=== PATIENT | male | born 1975 | race Caucasian/White ===

== ENCOUNTER 2022-02-02 14:08 | Inpatient (IN) ==
[2022-02-02] MEDS ORDERED: ALBUTEROL/IPRATROPIUM 3 ML NEB RESP TX STA (14:29)
[2022-02-02] MEDS ORDERED: methylPREDNISolone SOD SUC 125 MG/2 ML VIAL IV STA (14:29)
[2022-02-02 14:44] LABS: Basophils % 0.4 % (0.0-0.8); Eosinophils % 0.1 % (0.00-10.9); Hematocrit 40.6 VOL% (42.0-52.0); Hemoglobin 13.5 GM/DL (14.0-18.0); Immature Granulocytes % 0.4 %; Immature Granulocytes Absolute 0.04 #; Lymphocytes % 11.2 % (21.2-54.2); Mean Corpuscular HGB Conc 33.3 GM/DL (32-36); Mean Corpuscular Volume 88.5 FL (87-102); Mean Platelet Volume 9.2 FL (9.6-12.0); Monocytes # 0.3 10*3/uL (0.11-0.8); Monocytes % 2.7 % (1.7-12.7); Neutrophils % 85.2 % (38.7-73.9); Platelet Count 431 T/CUMM (130-400); Red Blood Count 4.59 MC/CUMM (3.8-5.5); Red Cell Distribution Width 16.4 % (9.3-17.3); White Blood Count 9.2 T/CUMM (4-12)
[2022-02-02 14:54] LABS: Arterial Base Excess iSTAT -10 MMOL/L (-2.5-2.5); Arterial Bicarbonate iSTAT 10.4 MMOL/L (20-26); Arterial O2 Saturation iSTAT 96 % (95-100); Arterial PCO2 iSTAT 14 MM HG (35-48); Arterial PO2 iSTAT 69 MM HG (80-95); Arterial Total CO2 iSTAT 11 MMO/L (23-27)
[2022-02-02] MEDS ORDERED: AZITHROMYCIN INJ 500 MG in SODIUM CHLORIDE 0.9% 250 ML IV STA (15:01)
[2022-02-02] MEDS ORDERED: VANCOMYCIN INJ 1,000 MG in SODIUM CHLORIDE 0.9% 250 ML IV STA ×2 (15:01→15:16)
[2022-02-02] MEDS ORDERED: PIPERACILLIN/TAZOBACTAM 3,375 MG in SODIUM CHLORIDE 0.9% 100 ML IV STA (15:01)
[2022-02-02 15:04] LABS: Albumin 3.5 G/DL (3.4-5.0); Bilirubin,Total 0.6 MG/DL (0.20-1.00); Calcium 8.4 MG/DL (8.5-10.1); Osmolality,Calculated 282.7 MOS/KG (273-304); Potassium 3.9 MMOL/L (3.5-5.1); Total Protein 7.2 G/DL (6.4-8.2)
[2022-02-02] MEDS ORDERED: SODIUM CHLORIDE 0.9% 1,000 ML IV STA (15:18)
[2022-02-02] MEDS ORDERED: ALBUTEROL 2.5 MG/3 ML NEB RESP TX PRN (15:50)
[2022-02-02] MEDS ORDERED: ONDANSETRON 4 MG/2 ML VIAL IV PRN (15:50)
[2022-02-02] MEDS ORDERED: SODIUM BICARBONATE 50 MEQ/50 ML VIAL IV STA (15:55)
[2022-02-02] MEDS ORDERED: OSELTAMIVIR 75 MG CAPSULE PO SCH (16:00)
[2022-02-02] MEDS ORDERED: LACTATED RINGERS 1,000 ML IV ONE (17:24)
[2022-02-02] MEDS: ALPRAZolam 0.5 MG TABLET PO PRN (17:36)
[2022-02-02 17:49] LABS: Arterial Base Excess iSTAT -12 MMOL/L (-2.5-2.5); Arterial Bicarbonate iSTAT 10.3 MMOL/L (20-26); Arterial O2 Saturation iSTAT 91 % (95-100); Arterial PCO2 iSTAT 16 MM HG (35-48); Arterial PO2 iSTAT 57 MM HG (80-95); Arterial Total CO2 iSTAT 11 MMO/L (23-27); Arterial pH iSTAT 7.421 (7.35-7.45)
[2022-02-02] MEDS: ALBUTEROL/IPRATROPIUM 3 ML NEB RESP TX SCH (19:12)
[2022-02-02] MEDS: OSELTAMIVIR 30 MG CAPSULE PO SCH (20:37)
[2022-02-02] MEDS: cefTRIAXone 1,000 MG in SODIUM CHLORIDE 0.9% 100 ML IV SCH (20:38)
[2022-02-02] MEDS ORDERED: SODIUM CHLORIDE 0.9% 1,000 ML IV ONE (22:53)
[2022-02-02] MEDS: ACETAMINOPHEN 325 MG TABLET PO PRN (23:41)
[2022-02-02] MEDS: SODIUM CHLORIDE 0.9% 1,000 ML IV SCH (23:51)
[2022-02-03] MEDS ORDERED: FUROSEMIDE 40 MG/4 ML VIAL IV ONE (01:48)
[2022-02-03] MEDS: ALBUTEROL/IPRATROPIUM 3 ML NEB RESP TX SCH ×4 (02:15→19:20)
[2022-02-03] MEDS ORDERED: NOREPINEPHRINE DRIP 8 MG/250 ML PREMIX IV PRN (02:40)
[2022-02-03] MEDS ORDERED: LORazepam 2 MG/1 ML VIAL IV ONE (02:40)
[2022-02-03] MEDS ORDERED: LORazepam 2 MG/1 ML VIAL ONE (02:45)
[2022-02-03] MEDS ORDERED: methylPREDNISolone SOD SUC 40 MG/1 ML VIAL IV SCH ×2 (03:00→10:00)
[2022-02-03 03:32] LABS: Arterial Base Excess iSTAT -9 MMOL/L (-2.5-2.5); Arterial Bicarbonate iSTAT 14.5 MMOL/L (20-26); Arterial O2 Saturation iSTAT 89 % (95-100); Arterial PCO2 iSTAT 25 MM HG (35-48); Arterial PO2 iSTAT 56 MM HG (80-95); Arterial Total CO2 iSTAT 15 MMO/L (23-27); Arterial pH iSTAT 7.379 (7.35-7.45)
[2022-02-03 03:55] LABS: Basophils % 0.3 % (0.0-0.8); Hemoglobin 12.3 GM/DL (14.0-18.0); Immature Granulocytes % 0.1 %; Immature Granulocytes Absolute 0.01 #; Lymphocytes # 0.7 10*3/uL (1.4-4.0); Mean Corpuscular HGB Conc 33.2 GM/DL (32-36); Mean Corpuscular Volume 89.6 FL (87-102); Mean Platelet Volume 9.6 FL (9.6-12.0); Monocytes # 0.2 10*3/uL (0.11-0.8); Monocytes % 2.7 % (1.7-12.7); Neutrophils % 87.9 % (38.7-73.9); Platelet Count 332 T/CUMM (130-400); Red Blood Count 4.13 MC/CUMM (3.8-5.5); Red Cell Distribution Width 16.4 % (9.3-17.3); White Blood Count 7.9 T/CUMM (4-12)
[2022-02-03 04:14] LABS: Band Neutrophils 6 % (0-10); Lymphocytes 8 % (20-55); Platelet Estimate Adequate; Total Cells Counted 100
[2022-02-03 04:15] LABS: Hypochromia Slight
[2022-02-03 04:23] LABS: Alanine Aminotransferase 16 U/L (16-61); Albumin 2.4 G/DL (3.4-5.0); Alkaline Phosphatase 94 U/L (45-117); Aspartate Amino Transferase 49 U/L (0-37); Bilirubin,Total < 0.39 MG/DL (0.20-1.00); Blood Urea Nitrogen 27 MG/DL (7-18); Calcium 7.5 MG/DL (8.5-10.1); Carbon Dioxide 16 MMOL/L (21-32); Chloride 118 MMOL/L (98-107); Glucose 120 MG/DL (74-106); Osmolality,Calculated 284.4 MOS/KG (273-304); Potassium 3.6 MMOL/L (3.5-5.1); Sodium 140 MMOL/L (136-145); Thyroid Stimulating Hormone 0.238 uIU/ml (0.358-3.74)
[2022-02-03 06:14] LABS: Arterial Base Excess iSTAT -8 MMOL/L (-2.5-2.5); Arterial Bicarbonate iSTAT 14.8 MMOL/L (20-26); Arterial O2 Saturation iSTAT 94 % (95-100); Arterial PCO2 iSTAT 23 MM HG (35-48); Arterial PO2 iSTAT 66 MM HG (80-95); Arterial Total CO2 iSTAT 15 MMO/L (23-27); Arterial pH iSTAT 7.417 (7.35-7.45)
[2022-02-03] MEDS: SODIUM CHLORIDE 0.9% 1,000 ML IV SCH (08:08)
[2022-02-03] MEDS: OSELTAMIVIR 30 MG CAPSULE PO SCH (09:00)
[2022-02-03] MEDS: PANTOPRAZOLE 40 MG TABLET PO SCH (09:00)
[2022-02-03] MEDS: AZITHROMYCIN 250 MG TABLET PO SCH (09:00)
[2022-02-03] MEDS ORDERED: SODIUM BICARBONATE 50 MEQ/50 ML VIAL IV ONE (09:32)
[2022-02-03] MEDS: NICOTINE 21 MG/24 HR PATCH TRANSDERM PRN (10:00)
[2022-02-03] MEDS: VANCOMYCIN INJ 1,000 MG in SODIUM CHLORIDE 0.9% 250 ML IV SCH ×2 (12:00→23:55)
[2022-02-03] MEDS: ACETAMINOPHEN 325 MG TABLET PO PRN (12:05)
[2022-02-03] MEDS: GABAPENTIN 300 MG CAPSULE PO SCH ×2 (14:02→20:18)
[2022-02-03 14:23] LABS: Mucus,Urine Occasional /LPF (Occasional); RBC,Urine 1 /HPF (0-4)
[2022-02-03 14:24] LABS: Bilirubin,Urine Negative (Negative); Blood, Urine Negative (Negative); Glucose,Urine (UA) Negative (Negative); Ketones,Urine Negative (Negative); Nitrite,Urine Negative (Negative); Protein,Urine Trace mg/dL (Negative); Urine Appearance Clear (Clear); Urine Color Yellow (Yellow); Urine Urobilinogen 0.2 eU/dL (<2.0); Urine pH 5.5 (4.5-8.0)
[2022-02-03] MEDS: MORPHINE 2 MG/1 ML SYRINGE IV PRN ×2 (16:10→20:20)
[2022-02-03 16:26] LABS: Calcium 8.1 MG/DL (8.5-10.1); Osmolality,Calculated 289.3 MOS/KG (273-304); Potassium 2.9 MMOL/L (3.5-5.1)
[2022-02-03] MEDS: POTASSIUM CHLORIDE 20 MEQ TABLET PO PRN ×3 (17:07→22:07)
[2022-02-03] MEDS ORDERED: ALUMINUM/MAGNES/SIMETH MAX STR 30 ML UDCUP PO PRN (18:07)
[2022-02-03] MEDS: OSELTAMIVIR 75 MG CAPSULE PO SCH (20:18)
[2022-02-03] MEDS: cefTRIAXone 1,000 MG in SODIUM CHLORIDE 0.9% 100 ML IV SCH (20:18)
[2022-02-04] MEDS: ALBUTEROL/IPRATROPIUM 3 ML NEB RESP TX SCH ×4 (00:22→18:18)
[2022-02-04] MEDS: MORPHINE 2 MG/1 ML SYRINGE IV PRN ×3 (01:10→23:40)
[2022-02-04] MEDS: POTASSIUM CHLORIDE 20 MEQ TABLET PO PRN (01:53)
[2022-02-04 04:31] LABS: Basophils % 0.1 % (0.0-0.8); Hematocrit 32.6 VOL% (42.0-52.0); Immature Granulocytes % 0.8 %; Immature Granulocytes Absolute 0.07 #; Lymphocytes # 0.7 10*3/uL (1.4-4.0); Lymphocytes % 7.2 % (21.2-54.2); Mean Corpuscular HGB Conc 33.7 GM/DL (32-36); Mean Corpuscular Volume 87.2 FL (87-102); Mean Platelet Volume 9.8 FL (9.6-12.0); Monocytes # 0.3 10*3/uL (0.11-0.8); Monocytes % 3.1 % (1.7-12.7); Neutrophils % 88.8 % (38.7-73.9); Platelet Count 279 T/CUMM (130-400); Red Blood Count 3.74 MC/CUMM (3.8-5.5); Red Cell Distribution Width 16.3 % (9.3-17.3); White Blood Count 9.3 T/CUMM (4-12)
[2022-02-04 04:53] LABS: Calcium 7.7 MG/DL (8.5-10.1); Osmolality,Calculated 289.8 MOS/KG (273-304); Potassium 4.1 MMOL/L (3.5-5.1)
[2022-02-04 05:20] LABS: Arterial Base Excess iSTAT -3 MMOL/L (-2.5-2.5); Arterial O2 Saturation iSTAT 93 % (95-100); Arterial PCO2 iSTAT 30 MM HG (35-48); Arterial PO2 iSTAT 62 MM HG (80-95); Arterial Total CO2 iSTAT 21 MMO/L (23-27); Arterial pH iSTAT 7.437 (7.35-7.45)
[2022-02-04] MEDS: GABAPENTIN 300 MG CAPSULE PO SCH ×3 (08:25→20:15)
[2022-02-04] MEDS: PANTOPRAZOLE 40 MG TABLET PO SCH (08:26)
[2022-02-04] MEDS: ALPRAZolam 0.5 MG TABLET PO PRN ×2 (08:26→19:20)
[2022-02-04] MEDS: AZITHROMYCIN 250 MG TABLET PO SCH (08:26)
[2022-02-04] MEDS: OSELTAMIVIR 75 MG CAPSULE PO SCH ×2 (08:26→20:16)
[2022-02-04] MEDS: ENOXAPARIN 40 MG/0.4 ML SYRINGE SUBCUT SCH (09:30)
[2022-02-04] MEDS: VANCOMYCIN INJ 1,000 MG in SODIUM CHLORIDE 0.9% 250 ML IV SCH ×2 (11:40→23:15)
[2022-02-04] MEDS: ACETAMINOPHEN 325 MG TABLET PO PRN (19:20)
[2022-02-04] MEDS: cefTRIAXone 1,000 MG in SODIUM CHLORIDE 0.9% 100 ML IV SCH (20:20)
[2022-02-04 23:27] LABS: ABG Base Excess -0.5 MMOL/L (-2.5-2.5); ABG Oxygen Saturation 93.5 % (95-100); ABG PCO2 33.6 MM HG (35-48); ABG PH 7.444 (7.35-7.45); ABG PO2 66.4 MM HG (80-95); ABG TCO2 20.8 MMOL/L (23-27)
[2022-02-05] MEDS: ACETAMINOPHEN 325 MG TABLET PO PRN ×2 (01:10→11:39)
[2022-02-05] MEDS: ALBUTEROL/IPRATROPIUM 3 ML NEB RESP TX SCH ×4 (01:50→19:56)
[2022-02-05 04:31] LABS: Arterial Base Excess iSTAT -2 MMOL/L (-2.5-2.5); Arterial Bicarbonate iSTAT 23.1 MMOL/L (20-26); Arterial O2 Saturation iSTAT 94 % (95-100); Arterial PCO2 iSTAT 38 MM HG (35-48); Arterial PO2 iSTAT 72 MM HG (80-95); Arterial Total CO2 iSTAT 24 MMO/L (23-27); Arterial pH iSTAT 7.395 (7.35-7.45)
[2022-02-05 05:00] LABS: Basophils % 0.2 % (0.0-0.8); Eosinophils # 0.3 10*3/uL (0.0-0.87); Eosinophils % 3.1 % (0.00-10.9); Hematocrit 31.5 VOL% (42.0-52.0); Hemoglobin 10.3 GM/DL (14.0-18.0); Immature Granulocytes % 0.8 %; Immature Granulocytes Absolute 0.07 #; Lymphocytes # 1.3 10*3/uL (1.4-4.0); Lymphocytes % 14.7 % (21.2-54.2); Mean Corpuscular HGB Conc 32.7 GM/DL (32-36); Mean Corpuscular Volume 88.2 FL (87-102); Monocytes # 0.3 10*3/uL (0.11-0.8); Monocytes % 2.9 % (1.7-12.7); NRBC # 0.02 10*3/uL; Neutrophils % 78.3 % (38.7-73.9); Platelet Count 256 T/CUMM (130-400); Red Blood Count 3.57 MC/CUMM (3.8-5.5); Red Cell Distribution Width 16.5 % (9.3-17.3)
[2022-02-05] MEDS: MORPHINE 2 MG/1 ML SYRINGE IV PRN ×3 (05:15→21:12)
[2022-02-05 05:32] LABS: Band Neutrophils 1 % (0-10); Eosinophils 1 % (0-10); Hypochromia Slight; Lymphocytes 13 % (20-55); Microcytosis Slight; Platelet Estimate Adequate; Total Cells Counted 100
[2022-02-05 05:41] LABS: Alanine Aminotransferase 24 U/L (16-61); Albumin 1.8 G/DL (3.4-5.0); Alkaline Phosphatase 131 U/L (45-117); Aspartate Amino Transferase 43 U/L (0-37); Bilirubin,Total < 0.39 MG/DL (0.20-1.00); Blood Urea Nitrogen 16 MG/DL (7-18); Calcium 8.3 MG/DL (8.5-10.1); Carbon Dioxide 21 MMOL/L (21-32); Chloride 110 MMOL/L (98-107); Glucose 82 MG/DL (74-106); Osmolality,Calculated 278.4 MOS/KG (273-304); Potassium 3.8 MMOL/L (3.5-5.1); Sodium 140 MMOL/L (136-145); Total Protein 5.4 G/DL (6.4-8.2)
[2022-02-05] MEDS: ENOXAPARIN 40 MG/0.4 ML SYRINGE SUBCUT SCH (09:10)
[2022-02-05] MEDS: OSELTAMIVIR 75 MG CAPSULE PO SCH ×2 (09:12→20:01)
[2022-02-05] MEDS: GABAPENTIN 300 MG CAPSULE PO SCH ×3 (09:12→20:01)
[2022-02-05] MEDS: AZITHROMYCIN 250 MG TABLET PO SCH (09:12)
[2022-02-05] MEDS: ESOMEPRAZOLE 40 MG PO SCH ×2 (09:14→20:01)
[2022-02-05] MEDS: FLUCONAZOLE INJ 400 MG/200 ML PREMIX IV SCH (10:50)
[2022-02-05] MEDS: LORazepam 2 MG/1 ML VIAL IV PRN (11:20)
[2022-02-05] MEDS: VANCOMYCIN INJ 1,000 MG in SODIUM CHLORIDE 0.9% 250 ML IV SCH ×2 (12:56→21:12)
[2022-02-05] MEDS: ALPRAZolam 0.5 MG TABLET PO PRN (20:01)
[2022-02-05] MEDS: cefTRIAXone 1,000 MG in SODIUM CHLORIDE 0.9% 100 ML IV SCH (20:03)
[2022-02-06] MEDS: ALBUTEROL/IPRATROPIUM 3 ML NEB RESP TX SCH ×4 (00:06→19:38)
[2022-02-06 03:53] LABS: Arterial Base Excess iSTAT 1 MMOL/L (-2.5-2.5); Arterial Bicarbonate iSTAT 25.1 MMOL/L (20-26); Arterial O2 Saturation iSTAT 100 % (95-100); Arterial PCO2 iSTAT 37 MM HG (35-48); Arterial PO2 iSTAT 177 MM HG (80-95); Arterial Total CO2 iSTAT 26 MMO/L (23-27); Arterial pH iSTAT 7.441 (7.35-7.45)
[2022-02-06 04:13] LABS: Basophils % 0.2 % (0.0-0.8); Eosinophils # 0.6 10*3/uL (0.0-0.87); Eosinophils % 6.9 % (0.00-10.9); Hematocrit 29.3 VOL% (42.0-52.0); Hemoglobin 9.9 GM/DL (14.0-18.0); Immature Granulocytes % 0.9 %; Immature Granulocytes Absolute 0.08 #; Lymphocytes # 1.4 10*3/uL (1.4-4.0); Lymphocytes % 15.5 % (21.2-54.2); Mean Corpuscular HGB Conc 33.8 GM/DL (32-36); Mean Corpuscular Volume 88.3 FL (87-102); Mean Platelet Volume 9.1 FL (9.6-12.0); Monocytes # 0.3 10*3/uL (0.11-0.8); Monocytes % 3.8 % (1.7-12.7); Neutrophils % 72.7 % (38.7-73.9); Red Blood Count 3.32 MC/CUMM (3.8-5.5); Red Cell Distribution Width 16.6 % (9.3-17.3); White Blood Count 9.1 T/CUMM (4-12)
[2022-02-06 04:14] LABS: Platelet Count 171 T/CUMM (130-400)
[2022-02-06 04:27] LABS: Albumin 1.7 G/DL (3.4-5.0); Bilirubin,Total 0.5 MG/DL (0.20-1.00); Calcium 8.1 MG/DL (8.5-10.1); Osmolality,Calculated 280.3 MOS/KG (273-304); Potassium 3.4 MMOL/L (3.5-5.1); Total Protein 5.6 G/DL (6.4-8.2)
[2022-02-06] MEDS: VANCOMYCIN INJ 1,000 MG in SODIUM CHLORIDE 0.9% 250 ML IV SCH ×2 (05:20→12:37)
[2022-02-06] MEDS: POTASSIUM CHLORIDE 20 MEQ TABLET PO PRN ×2 (06:24→08:03)
[2022-02-06] MEDS: ESOMEPRAZOLE 40 MG PO SCH ×2 (08:02→20:25)
[2022-02-06] MEDS: ENOXAPARIN 40 MG/0.4 ML SYRINGE SUBCUT SCH (08:02)
[2022-02-06] MEDS: OSELTAMIVIR 75 MG CAPSULE PO SCH ×2 (08:03→20:26)
[2022-02-06] MEDS: AZITHROMYCIN 250 MG TABLET PO SCH (08:03)
[2022-02-06] MEDS: GABAPENTIN 300 MG CAPSULE PO SCH ×3 (08:03→20:26)
[2022-02-06] MEDS: MORPHINE 2 MG/1 ML SYRINGE IV PRN ×2 (08:04→12:40)
[2022-02-06] MEDS: FLUCONAZOLE INJ 400 MG/200 ML PREMIX IV SCH (09:00)
[2022-02-06] MEDS: NYSTATIN 500,000 UNIT/5 ML UDCUP SWISH/SWAL SCH ×4 (09:29→20:26)
[2022-02-06] MEDS: ACETAMINOPHEN 325 MG TABLET PO PRN (15:18)
[2022-02-06] MEDS ORDERED: SODIUM CHLORIDE 0.9% 250 ML IV ONE ×2 (20:11→20:45)
[2022-02-06] MEDS: cefTRIAXone 1,000 MG in SODIUM CHLORIDE 0.9% 100 ML IV SCH (20:24)
[2022-02-06] MEDS: SODIUM CHLORIDE 0.9% 1,000 ML IV SCH (21:28)
[2022-02-07] MEDS: ALBUTEROL/IPRATROPIUM 3 ML NEB RESP TX SCH ×4 (00:13→19:30)
[2022-02-07] MEDS: MORPHINE 2 MG/1 ML SYRINGE IV PRN ×5 (00:58→19:51)
[2022-02-07 03:34] LABS: Basophils % 0.2 % (0.0-0.8); Eosinophils # 0.4 10*3/uL (0.0-0.87); Eosinophils % 4.7 % (0.00-10.9); Hematocrit 29.2 VOL% (42.0-52.0); Hemoglobin 9.7 GM/DL (14.0-18.0); Immature Granulocytes % 1.4 %; Immature Granulocytes Absolute 0.12 #; Lymphocytes % 11.8 % (21.2-54.2); Mean Corpuscular HGB Conc 33.2 GM/DL (32-36); Mean Corpuscular Volume 87.7 FL (87-102); Mean Platelet Volume 9.1 FL (9.6-12.0); Monocytes # 0.4 10*3/uL (0.11-0.8); Neutrophils % 77.9 % (38.7-73.9); Red Blood Count 3.33 MC/CUMM (3.8-5.5); Red Cell Distribution Width 16.3 % (9.3-17.3); White Blood Count 8.7 T/CUMM (4-12)
[2022-02-07 03:36] LABS: Platelet Count 103 T/CUMM (130-400)
[2022-02-07 03:41] LABS: Calcium 8.1 MG/DL (8.5-10.1); Osmolality,Calculated 274.7 MOS/KG (273-304); Potassium 3.3 MMOL/L (3.5-5.1)
[2022-02-07] MEDS: POTASSIUM CHLORIDE 20 MEQ TABLET PO PRN ×2 (04:45→06:40)
[2022-02-07 04:55] LABS: Arterial Base Excess iSTAT 0 MMOL/L (-2.5-2.5); Arterial Bicarbonate iSTAT 24.2 MMOL/L (20-26); Arterial O2 Saturation iSTAT 96 % (95-100); Arterial PCO2 iSTAT 36 MM HG (35-48); Arterial PO2 iSTAT 82 MM HG (80-95); Arterial Total CO2 iSTAT 25 MMO/L (23-27); Arterial pH iSTAT 7.439 (7.35-7.45)
[2022-02-07] MEDS: SODIUM CHLORIDE 0.9% 1,000 ML IV SCH (08:24)
[2022-02-07] MEDS: NYSTATIN 500,000 UNIT/5 ML UDCUP SWISH/SWAL SCH ×4 (08:25→20:33)
[2022-02-07] MEDS: ENOXAPARIN 40 MG/0.4 ML SYRINGE SUBCUT SCH (08:25)
[2022-02-07] MEDS: OSELTAMIVIR 75 MG CAPSULE PO SCH ×2 (08:26→20:33)
[2022-02-07] MEDS: AZITHROMYCIN 250 MG TABLET PO SCH (08:26)
[2022-02-07] MEDS: GABAPENTIN 300 MG CAPSULE PO SCH ×3 (08:26→20:33)
[2022-02-07] MEDS: ESOMEPRAZOLE 40 MG PO SCH ×2 (08:54→20:34)
[2022-02-07] MEDS: ALBUMIN 25% 12.5 GM/50 ML VIAL IV SCH ×2 (08:54→17:34)
[2022-02-07] MEDS: FLUCONAZOLE INJ 400 MG/200 ML PREMIX IV SCH (09:04)
[2022-02-07] MEDS: LORazepam 2 MG/1 ML VIAL IV PRN (10:40)
[2022-02-07 14:02] VITALS: BP 110/68
[2022-02-07] MEDS: cefTRIAXone 1,000 MG in SODIUM CHLORIDE 0.9% 100 ML IV SCH (20:34)
[2022-02-07] MEDS: NICOTINE 21 MG/24 HR PATCH TRANSDERM PRN (21:39)
[2022-02-07] MEDS: ALPRAZolam 0.5 MG TABLET PO PRN (22:05)
[2022-02-08] MEDS: ALBUTEROL/IPRATROPIUM 3 ML NEB RESP TX SCH ×4 (00:35→19:08)
[2022-02-08] MEDS: MORPHINE 2 MG/1 ML SYRINGE IV PRN ×2 (00:47→06:16)
[2022-02-08] MEDS: ALBUMIN 25% 12.5 GM/50 ML VIAL IV SCH (00:47)
[2022-02-08 04:23] LABS: Arterial Base Excess iSTAT 1 MMOL/L (-2.5-2.5); Arterial Bicarbonate iSTAT 24.2 MMOL/L (20-26); Arterial O2 Saturation iSTAT 86 % (95-100); Arterial PCO2 iSTAT 32 MM HG (35-48); Arterial PO2 iSTAT 47 MM HG (80-95); Arterial Total CO2 iSTAT 25 MMO/L (23-27); Arterial pH iSTAT 7.482 (7.35-7.45)
[2022-02-08 06:01] LABS: Basophils % 0.2 % (0.0-0.8); Eosinophils # 0.4 10*3/uL (0.0-0.87); Eosinophils % 6.7 % (0.00-10.9); Hematocrit 26.3 VOL% (42.0-52.0); Hemoglobin 8.8 GM/DL (14.0-18.0); Immature Granulocytes % 2.6 %; Immature Granulocytes Absolute 0.15 #; Lymphocytes % 17.8 % (21.2-54.2); Mean Corpuscular HGB Conc 33.5 GM/DL (32-36); Mean Corpuscular Volume 87.7 FL (87-102); Mean Platelet Volume 9.8 FL (9.6-12.0); Monocytes # 0.3 10*3/uL (0.11-0.8); Monocytes % 5.1 % (1.7-12.7); Neutrophils % 67.6 % (38.7-73.9); Platelet Count 89 T/CUMM (130-400); White Blood Count 5.9 T/CUMM (4-12)
[2022-02-08 06:21] LABS: Bilirubin,Total 0.5 MG/DL (0.20-1.00); Calcium 8.2 MG/DL (8.5-10.1); Osmolality,Calculated 274.7 MOS/KG (273-304); Potassium 3.2 MMOL/L (3.5-5.1); Total Protein 5.4 G/DL (6.4-8.2)
[2022-02-08 06:28] LABS: Anisocytosis 1+; Macrocytosis 1+; Platelet Estimate Decreased
[2022-02-08 06:29] LABS: Ovalocytes Few
[2022-02-08] MEDS ORDERED: FUROSEMIDE 40 MG/4 ML VIAL IV ONE (08:44)
[2022-02-08] MEDS ORDERED: MAGNESIUM SULF RIDER 4 GM/100 ML PREMIX IV PRN (09:06)
[2022-02-08] MEDS ORDERED: MAGNESIUM SULF RIDER 2 GM/50 ML PREMIX IV PRN (09:06)
[2022-02-08] MEDS: ALPRAZolam 0.5 MG TABLET PO PRN (09:15)
[2022-02-08] MEDS: NYSTATIN 500,000 UNIT/5 ML UDCUP SWISH/SWAL SCH ×4 (09:16→20:48)
[2022-02-08] MEDS: GABAPENTIN 300 MG CAPSULE PO SCH ×3 (09:17→20:49)
[2022-02-08] MEDS: AZITHROMYCIN 250 MG TABLET PO SCH (09:17)
[2022-02-08] MEDS: FLUCONAZOLE INJ 400 MG/200 ML PREMIX IV SCH (09:18)
[2022-02-08] MEDS: guaiFENesin/CODEINE 5 ML LIQUID PO PRN ×2 (09:25→20:48)
[2022-02-08] MEDS: ESOMEPRAZOLE 40 MG PO SCH ×2 (13:15→20:49)
[2022-02-08] MEDS: SODIUM CHLORIDE 3% 4 ML NEB RESP TX SCH (19:09)
[2022-02-08] MEDS: OSELTAMIVIR 75 MG CAPSULE PO SCH (20:49)
[2022-02-08] MEDS: cefTRIAXone 1,000 MG in SODIUM CHLORIDE 0.9% 100 ML IV SCH (20:50)
[2022-02-09] MEDS: ALBUTEROL/IPRATROPIUM 3 ML NEB RESP TX SCH ×4 (00:44→19:32)
[2022-02-09 03:15] LABS: Arterial Base Excess iSTAT 4 MMOL/L (-2.5-2.5); Arterial Bicarbonate iSTAT 28.4 MMOL/L (20-26); Arterial O2 Saturation iSTAT 89 % (95-100); Arterial PCO2 iSTAT 40 MM HG (35-48); Arterial PO2 iSTAT 53 MM HG (80-95); Arterial Total CO2 iSTAT 30 MMO/L (23-27); Arterial pH iSTAT 7.464 (7.35-7.45)
[2022-02-09] MEDS: guaiFENesin/CODEINE 5 ML LIQUID PO PRN ×3 (03:36→21:14)
[2022-02-09] MEDS: MORPHINE 2 MG/1 ML SYRINGE IV PRN (05:44)
[2022-02-09 05:52] LABS: Basophils % 0.1 % (0.0-0.8); Eosinophils # 0.4 10*3/uL (0.0-0.87); Eosinophils % 5.2 % (0.00-10.9); Hematocrit 26.2 VOL% (42.0-52.0); Hemoglobin 8.7 GM/DL (14.0-18.0); Immature Granulocytes % 1.9 %; Immature Granulocytes Absolute 0.14 #; Lymphocytes # 1.3 10*3/uL (1.4-4.0); Lymphocytes % 17.9 % (21.2-54.2); Mean Corpuscular HGB Conc 33.2 GM/DL (32-36); Mean Corpuscular Volume 87.9 FL (87-102); Mean Platelet Volume 9.8 FL (9.6-12.0); Monocytes # 0.3 10*3/uL (0.11-0.8); Monocytes % 4.2 % (1.7-12.7); Neutrophils % 70.7 % (38.7-73.9); Platelet Count 83 T/CUMM (130-400); Red Blood Count 2.98 MC/CUMM (3.8-5.5); Red Cell Distribution Width 15.9 % (9.3-17.3); White Blood Count 7.5 T/CUMM (4-12)
[2022-02-09 06:10] LABS: Osmolality,Calculated 273.7 MOS/KG (273-304); Potassium 2.9 MMOL/L (3.5-5.1)
[2022-02-09 06:16] LABS: Platelet Estimate Decreased
[2022-02-09] MEDS: POTASSIUM CHLORIDE 20 MEQ TABLET PO PRN ×4 (06:18→12:40)
[2022-02-09] MEDS: SODIUM CHLORIDE 3% 4 ML NEB RESP TX SCH ×2 (07:27→19:33)
[2022-02-09] MEDS: ESOMEPRAZOLE 40 MG PO SCH ×2 (08:36→21:14)
[2022-02-09] MEDS: AZITHROMYCIN 250 MG TABLET PO SCH (08:37)
[2022-02-09] MEDS: GABAPENTIN 300 MG CAPSULE PO SCH ×3 (08:37→21:15)
[2022-02-09] MEDS: NYSTATIN 500,000 UNIT/5 ML UDCUP SWISH/SWAL SCH ×4 (08:37→21:14)
[2022-02-09] MEDS: OSELTAMIVIR 75 MG CAPSULE PO SCH ×2 (08:37→21:15)
[2022-02-09] MEDS: FLUCONAZOLE INJ 400 MG/200 ML PREMIX IV SCH (10:28)
[2022-02-09] MEDS: ALPRAZolam 0.5 MG TABLET PO PRN (21:14)
[2022-02-09] MEDS: cefTRIAXone 1,000 MG in SODIUM CHLORIDE 0.9% 100 ML IV SCH (21:15)
[2022-02-10] MEDS: ALBUTEROL/IPRATROPIUM 3 ML NEB RESP TX SCH ×4 (00:09→19:46)
[2022-02-10] MEDS: ACETAMINOPHEN 325 MG TABLET PO PRN ×2 (00:15→21:57)
[2022-02-10] MEDS ORDERED: SODIUM CHLORIDE 0.9% 500 ML IV ONE (01:27)
[2022-02-10] MEDS ORDERED: NOREPINEPHRINE DRIP 8 MG/250 ML PREMIX IV PRN (03:34)
[2022-02-10] MEDS: guaiFENesin/CODEINE 5 ML LIQUID PO PRN ×3 (04:06→14:45)
[2022-02-10 04:35] LABS: Arterial Base Excess iSTAT 1 MMOL/L (-2.5-2.5); Arterial O2 Saturation iSTAT 92 % (95-100); Arterial PCO2 iSTAT 42 MM HG (35-48); Arterial PO2 iSTAT 64 MM HG (80-95); Arterial Total CO2 iSTAT 27 MMO/L (23-27); Arterial pH iSTAT 7.398 (7.35-7.45)
[2022-02-10 06:22] LABS: Basophils % 0.2 % (0.0-0.8); Eosinophils # 0.4 10*3/uL (0.0-0.87); Eosinophils % 4.9 % (0.00-10.9); Hematocrit 28.3 VOL% (42.0-52.0); Hemoglobin 9.1 GM/DL (14.0-18.0); Immature Granulocytes % 1.6 %; Immature Granulocytes Absolute 0.13 #; Lymphocytes # 1.5 10*3/uL (1.4-4.0); Mean Corpuscular HGB Conc 32.2 GM/DL (32-36); Mean Corpuscular Volume 90.4 FL (87-102); Mean Platelet Volume 11.5 FL (9.6-12.0); Monocytes # 0.4 10*3/uL (0.11-0.8); Monocytes % 4.4 % (1.7-12.7); Neutrophils % 70.9 % (38.7-73.9); Platelet Count 109 T/CUMM (130-400); Red Blood Count 3.13 MC/CUMM (3.8-5.5); Red Cell Distribution Width 16.1 % (9.3-17.3); White Blood Count 8.2 T/CUMM (4-12)
[2022-02-10 06:44] LABS: Albumin 1.7 G/DL (3.4-5.0); Bilirubin,Total 0.4 MG/DL (0.20-1.00); Calcium 7.9 MG/DL (8.5-10.1); Osmolality,Calculated 277.4 MOS/KG (273-304); Potassium 3.8 MMOL/L (3.5-5.1); Total Protein 5.3 G/DL (6.4-8.2)
[2022-02-10] MEDS: SODIUM CHLORIDE 3% 4 ML NEB RESP TX SCH ×2 (07:36→19:46)
[2022-02-10] MEDS: OSELTAMIVIR 75 MG CAPSULE PO SCH ×2 (09:09→21:21)
[2022-02-10] MEDS: AZITHROMYCIN 250 MG TABLET PO SCH (09:09)
[2022-02-10] MEDS: GABAPENTIN 300 MG CAPSULE PO SCH ×3 (09:09→21:21)
[2022-02-10] MEDS: ESOMEPRAZOLE 40 MG PO SCH ×2 (09:09→21:20)
[2022-02-10] MEDS: NYSTATIN 500,000 UNIT/5 ML UDCUP SWISH/SWAL SCH ×4 (09:13→21:21)
[2022-02-10] MEDS: MORPHINE 2 MG/1 ML SYRINGE IV PRN ×3 (09:21→21:22)
[2022-02-10] MEDS: FLUCONAZOLE INJ 400 MG/200 ML PREMIX IV SCH (11:02)
[2022-02-10] MEDS: ALPRAZolam 0.5 MG TABLET PO PRN (21:21)
[2022-02-11] MEDS: ALBUTEROL/IPRATROPIUM 3 ML NEB RESP TX SCH ×4 (01:07→20:41)
[2022-02-11] MEDS: MORPHINE 2 MG/1 ML SYRINGE IV PRN (02:27)
[2022-02-11] MEDS ORDERED: PHENYLEPHRINE DRIP 40 MG/250 ML PREMIX IV PRN (03:43)
[2022-02-11] MEDS ORDERED: DOPamine 800 MG/250 ML PREMIX IV PRN (04:02)
[2022-02-11 04:22] LABS: Arterial Base Excess iSTAT 5 MMOL/L (-2.5-2.5); Arterial Bicarbonate iSTAT 29.5 MMOL/L (20-26); Arterial O2 Saturation iSTAT 95 % (95-100); Arterial PCO2 iSTAT 40 MM HG (35-48); Arterial PO2 iSTAT 70 MM HG (80-95); Arterial Total CO2 iSTAT 31 MMO/L (23-27); Arterial pH iSTAT 7.474 (7.35-7.45)
[2022-02-11 04:51] LABS: Basophils % 0.1 % (0.0-0.8); Eosinophils # 0.4 10*3/uL (0.0-0.87); Eosinophils % 5.5 % (0.00-10.9); Hematocrit 30.1 VOL% (42.0-52.0); Hemoglobin 9.7 GM/DL (14.0-18.0); Immature Granulocytes % 1.2 %; Immature Granulocytes Absolute 0.09 #; Lymphocytes # 1.4 10*3/uL (1.4-4.0); Lymphocytes % 19.2 % (21.2-54.2); Mean Corpuscular HGB Conc 32.2 GM/DL (32-36); Mean Corpuscular Volume 89.9 FL (87-102); Mean Platelet Volume 11.7 FL (9.6-12.0); Monocytes # 0.4 10*3/uL (0.11-0.8); Monocytes % 5.2 % (1.7-12.7); Neutrophils % 68.8 % (38.7-73.9); Platelet Count 147 T/CUMM (130-400); Red Blood Count 3.35 MC/CUMM (3.8-5.5); White Blood Count 7.3 T/CUMM (4-12)
[2022-02-11 05:06] LABS: Calcium 8.2 MG/DL (8.5-10.1); Potassium 3.8 MMOL/L (3.5-5.1)
[2022-02-11] MEDS ORDERED: SODIUM CHLORIDE 0.9% 500 ML IV ONE (05:30)
[2022-02-11] MEDS ORDERED: VANCOMYCIN INJ 1,000 MG in SODIUM CHLORIDE 0.9% 250 ML IV ONE (05:35)
[2022-02-11] MEDS: LORazepam 2 MG/1 ML VIAL IV PRN (05:49)
[2022-02-11] MEDS: SODIUM CHLORIDE 0.9% 1,000 ML IV SCH ×2 (06:18→22:07)
[2022-02-11] MEDS: SODIUM CHLORIDE 3% 4 ML NEB RESP TX SCH ×2 (08:00→20:41)
[2022-02-11] MEDS: MEROPENEM 500 MG in SODIUM CHLORIDE 0.9% 100 ML IV SCH ×3 (09:34→20:45)
[2022-02-11] MEDS: NYSTATIN 500,000 UNIT/5 ML UDCUP SWISH/SWAL SCH ×4 (09:35→20:45)
[2022-02-11] MEDS: GABAPENTIN 300 MG CAPSULE PO SCH ×3 (09:35→20:45)
[2022-02-11] MEDS: ESOMEPRAZOLE 40 MG PO SCH ×2 (09:36→20:46)
[2022-02-11] MEDS: OSELTAMIVIR 75 MG CAPSULE PO SCH ×2 (09:36→20:45)
[2022-02-11] MEDS: ENOXAPARIN 60 MG/0.6 ML SYRINGE SUBCUT SCH ×2 (11:04→22:08)
[2022-02-11] MEDS: methylPREDNISolone SOD SUC 40 MG/1 ML VIAL IV SCH ×2 (11:05→17:27)
[2022-02-11] MEDS: FLUCONAZOLE INJ 400 MG/200 ML PREMIX IV SCH (11:05)
[2022-02-11] MEDS: guaiFENesin/CODEINE 5 ML LIQUID PO PRN (20:46)
[2022-02-12] MEDS: ALBUTEROL/IPRATROPIUM 3 ML NEB RESP TX SCH ×4 (00:21→19:40)
[2022-02-12] MEDS: methylPREDNISolone SOD SUC 40 MG/1 ML VIAL IV SCH ×3 (02:02→17:00)
[2022-02-12] MEDS: MEROPENEM 500 MG in SODIUM CHLORIDE 0.9% 100 ML IV SCH ×4 (02:03→19:56)
[2022-02-12] MEDS: ALPRAZolam 0.5 MG TABLET PO PRN (04:07)
[2022-02-12 04:19] LABS: Basophils % 0.2 % (0.0-0.8); Hematocrit 28.7 VOL% (42.0-52.0); Hemoglobin 9.2 GM/DL (14.0-18.0); Immature Granulocytes % 0.8 %; Immature Granulocytes Absolute 0.04 #; Lymphocytes # 0.6 10*3/uL (1.4-4.0); Lymphocytes % 11.2 % (21.2-54.2); Mean Corpuscular HGB Conc 32.1 GM/DL (32-36); Mean Platelet Volume 11.9 FL (9.6-12.0); Monocytes # 0.1 10*3/uL (0.11-0.8); Neutrophils % 85.8 % (38.7-73.9); Platelet Count 219 T/CUMM (130-400); Red Blood Count 3.19 MC/CUMM (3.8-5.5); Red Cell Distribution Width 15.6 % (9.3-17.3); White Blood Count 4.9 T/CUMM (4-12)
[2022-02-12 04:37] LABS: Calcium 8.4 MG/DL (8.5-10.1); Osmolality,Calculated 284.5 MOS/KG (273-304); Potassium 3.9 MMOL/L (3.5-5.1)
[2022-02-12] MEDS: MORPHINE 2 MG/1 ML SYRINGE IV PRN ×2 (06:17→19:55)
[2022-02-12] MEDS: SODIUM CHLORIDE 3% 4 ML NEB RESP TX SCH ×2 (07:42→19:40)
[2022-02-12] MEDS: OSELTAMIVIR 75 MG CAPSULE PO SCH ×2 (08:44→20:00)
[2022-02-12] MEDS: SODIUM CHLORIDE 0.9% 1,000 ML IV SCH ×2 (08:44→12:47)
[2022-02-12] MEDS: GABAPENTIN 300 MG CAPSULE PO SCH ×3 (08:44→20:00)
[2022-02-12] MEDS: ESOMEPRAZOLE 40 MG PO SCH ×2 (08:44→20:01)
[2022-02-12] MEDS: NYSTATIN 500,000 UNIT/5 ML UDCUP SWISH/SWAL SCH ×4 (08:44→20:00)
[2022-02-12] MEDS: FLUCONAZOLE INJ 400 MG/200 ML PREMIX IV SCH (09:02)
[2022-02-12] MEDS: ENOXAPARIN 60 MG/0.6 ML SYRINGE SUBCUT SCH ×2 (10:22→22:48)
[2022-02-12] MEDS: guaiFENesin/CODEINE 5 ML LIQUID PO PRN (15:28)
[2022-02-12] MEDS: NICOTINE 21 MG/24 HR PATCH TRANSDERM PRN (15:43)
[2022-02-13] MEDS: ALBUTEROL/IPRATROPIUM 3 ML NEB RESP TX SCH ×4 (00:14→19:32)
[2022-02-13] MEDS: methylPREDNISolone SOD SUC 40 MG/1 ML VIAL IV SCH ×3 (01:09→13:49)
[2022-02-13] MEDS: MORPHINE 2 MG/1 ML SYRINGE IV PRN ×5 (01:10→23:51)
[2022-02-13] MEDS: ALPRAZolam 0.5 MG TABLET PO PRN ×2 (01:10→20:43)
[2022-02-13] MEDS: MEROPENEM 500 MG in SODIUM CHLORIDE 0.9% 100 ML IV SCH ×4 (01:48→20:42)
[2022-02-13] MEDS: SODIUM CHLORIDE 0.9% 1,000 ML IV SCH ×3 (01:56→17:11)
[2022-02-13 03:33] LABS: Hematocrit 26.5 VOL% (42.0-52.0); Hemoglobin 8.5 GM/DL (14.0-18.0); Immature Granulocytes % 0.7 %; Immature Granulocytes Absolute 0.09 #; Lymphocytes # 0.8 10*3/uL (1.4-4.0); Lymphocytes % 5.5 % (21.2-54.2); Mean Corpuscular HGB Conc 32.1 GM/DL (32-36); Mean Corpuscular Volume 89.8 FL (87-102); Mean Platelet Volume 11.4 FL (9.6-12.0); Monocytes # 0.3 10*3/uL (0.11-0.8); Monocytes % 2.1 % (1.7-12.7); Neutrophils % 91.7 % (38.7-73.9); Platelet Count 293 T/CUMM (130-400); Red Blood Count 2.95 MC/CUMM (3.8-5.5); Red Cell Distribution Width 15.9 % (9.3-17.3); White Blood Count 13.7 T/CUMM (4-12)
[2022-02-13 03:45] LABS: Calcium 8.6 MG/DL (8.5-10.1); Osmolality,Calculated 285.1 MOS/KG (273-304)
[2022-02-13 04:04] LABS: Hypochromia Slight; Lymphocytes 4 % (20-55); Microcytosis Slight; Ovalocytes Slight; Target Cells Slight; Total Cells Counted 100
[2022-02-13 04:05] LABS: Platelet Estimate Normal
[2022-02-13] MEDS: SODIUM CHLORIDE 3% 4 ML NEB RESP TX SCH ×2 (07:53→19:32)
[2022-02-13] MEDS: NYSTATIN 500,000 UNIT/5 ML UDCUP SWISH/SWAL SCH ×3 (08:48→17:48)
[2022-02-13] MEDS: ESOMEPRAZOLE 40 MG PO SCH ×2 (08:48→20:44)
[2022-02-13] MEDS: GABAPENTIN 300 MG CAPSULE PO SCH ×3 (08:48→20:44)
[2022-02-13] MEDS: OSELTAMIVIR 75 MG CAPSULE PO SCH (08:48)
[2022-02-13] MEDS ORDERED: methylPREDNISolone SOD SUC 40 MG/1 ML VIAL IV SCH (10:01)
[2022-02-13] MEDS: VENLAFAXINE XR 75 MG CAPSULE PO SCH (11:43)
[2022-02-13] MEDS: ENOXAPARIN 60 MG/0.6 ML SYRINGE SUBCUT SCH ×2 (11:50→23:08)
[2022-02-13] MEDS: LORazepam 2 MG/1 ML VIAL IV PRN (17:42)
[2022-02-13] MEDS: NICOTINE 21 MG/24 HR PATCH TRANSDERM PRN (18:40)
[2022-02-13] MEDS: guaiFENesin/CODEINE 5 ML LIQUID PO PRN (20:43)
[2022-02-13] MEDS ORDERED: DOCUSATE SODIUM 100 MG CAPSULE PO PRN (23:41)
[2022-02-14] MEDS: ALBUTEROL/IPRATROPIUM 3 ML NEB RESP TX SCH ×4 (00:21→19:29)
[2022-02-14] MEDS: methylPREDNISolone SOD SUC 40 MG/1 ML VIAL IV SCH ×2 (03:08→14:33)
[2022-02-14] MEDS: MEROPENEM 500 MG in SODIUM CHLORIDE 0.9% 100 ML IV SCH ×4 (03:08→20:39)
[2022-02-14 03:40] LABS: Potassium 3.8 MMOL/L (3.5-5.1)
[2022-02-14 04:08] LABS: Hematocrit 25.8 VOL% (42.0-52.0); Hemoglobin 8.3 GM/DL (14.0-18.0); Immature Granulocytes % 1.2 %; Immature Granulocytes Absolute 0.13 #; Lymphocytes # 0.8 10*3/uL (1.4-4.0); Mean Corpuscular HGB Conc 32.2 GM/DL (32-36); Mean Platelet Volume 11.6 FL (9.6-12.0); Monocytes # 0.4 10*3/uL (0.11-0.8); Monocytes % 3.4 % (1.7-12.7); NRBC # 0.03 10*3/uL; Neutrophils % 88.4 % (38.7-73.9); Platelet Count 383 T/CUMM (130-400); Red Cell Distribution Width 15.9 % (9.3-17.3); White Blood Count 11.3 T/CUMM (4-12)
[2022-02-14] MEDS: SODIUM CHLORIDE 0.9% 1,000 ML IV SCH (05:49)
[2022-02-14] MEDS: SODIUM CHLORIDE 3% 4 ML NEB RESP TX SCH ×2 (07:41→19:29)
[2022-02-14] MEDS: MORPHINE 2 MG/1 ML SYRINGE IV PRN ×5 (08:18→21:47)
[2022-02-14] MEDS: VENLAFAXINE XR 75 MG CAPSULE PO SCH (08:54)
[2022-02-14] MEDS: ESOMEPRAZOLE 40 MG PO SCH ×2 (08:56→20:41)
[2022-02-14] MEDS: GABAPENTIN 300 MG CAPSULE PO SCH ×3 (08:58→20:39)
[2022-02-14] MEDS ORDERED: ENOXAPARIN 60 MG/0.6 ML SYRINGE SUBCUT SCH (09:00)
[2022-02-14] MEDS: POTASSIUM CHLORIDE 20 MEQ TABLET PO PRN (14:38)
[2022-02-14] MEDS: ALPRAZolam 0.5 MG TABLET PO PRN (20:38)
[2022-02-15] MEDS: methylPREDNISolone SOD SUC 40 MG/1 ML VIAL IV SCH (01:44)
[2022-02-15] MEDS: MEROPENEM 500 MG in SODIUM CHLORIDE 0.9% 100 ML IV SCH (01:45)
[2022-02-15 03:25] LABS: Basophils % 0.1 % (0.0-0.8); Hematocrit 27.2 VOL% (42.0-52.0); Hemoglobin 8.8 GM/DL (14.0-18.0); Immature Granulocytes % 1.8 %; Immature Granulocytes Absolute 0.19 #; Lymphocytes # 0.8 10*3/uL (1.4-4.0); Mean Corpuscular HGB Conc 32.4 GM/DL (32-36); Mean Corpuscular Volume 88.9 FL (87-102); Mean Platelet Volume 11.1 FL (9.6-12.0); Monocytes # 0.5 10*3/uL (0.11-0.8); Monocytes % 4.3 % (1.7-12.7); NRBC # 0.02 10*3/uL; Neutrophils % 86.8 % (38.7-73.9); Platelet Count 468 T/CUMM (130-400); Red Blood Count 3.06 MC/CUMM (3.8-5.5); Red Cell Distribution Width 15.9 % (9.3-17.3); White Blood Count 10.6 T/CUMM (4-12)
[2022-02-15 03:51] LABS: Calcium 8.2 MG/DL (8.5-10.1); Osmolality,Calculated 285.3 MOS/KG (273-304); Potassium 3.9 MMOL/L (3.5-5.1)
[2022-02-15] MEDS ORDERED: LEVOFLOXACIN 500 MG TABLET PO SCH (06:30)
[2022-02-15] MEDS: ALBUTEROL/IPRATROPIUM 3 ML NEB RESP TX SCH ×2 (07:37)
[2022-02-15] MEDS: SODIUM CHLORIDE 3% 4 ML NEB RESP TX SCH (07:37)
[2022-02-15] MEDS ORDERED: predniSONE 20 MG TABLET PO SCH (09:00)
[2022-02-15] MEDS: VENLAFAXINE XR 75 MG CAPSULE PO SCH (10:29)
[2022-02-15] MEDS: GABAPENTIN 300 MG CAPSULE PO SCH (10:30)
[2022-02-15] MEDS: ESOMEPRAZOLE 40 MG PO SCH (10:31)
== END 2022-02-15 11:10 | disposition home or self-care (01) | DRG 871 ==
LOC: N.ED 14:08 → N.EDINP 15:50 → SUATTDRO 15:50 → N.CC 18:43
PROVIDERS: ADMIT Internal Medicine; ATTEND Internal Medicine